=== PATIENT | female | born 1990 | race American Indian/Alaskan Native ===

== ENCOUNTER 2020-04-19 09:47 | Outpatient (CLI) | payer MEDICAID ==
--- NOTE | 2020-04-19 11:38 | Ultrasound Report ---
ULTRASOUND BREAST LEFT LIMITED, 04/19/2020 CLINICAL INFORMATION / INDICATION: PALP AREA. Patient presents for evaluation of an area of palpable concern in the left breast. TECHNIQUE: Targeted ultrasound evaluation was performed of the area of interest. COMPARISON: None. FINDINGS: Targeted ultrasound of the area of palpable concern in the left breast 8:00 position located 12 cm fr om the nipple as well as the 8:30 position located 12 cm from the nipple reveals 2 adjacent benign in tradermal cystic lesions, the larger measuring up to 10 mm. These are most compatible with benign judith aceous cysts. No suspicious sonographic abnormality identified. IMPRESSION: 1. Two adjacent benign cystic intradermal lesions are seen at the site of palpable concern in the lef t breast, most compatible with sebaceous cysts. No suspicious sonographic abnormality identified. Follow up recommendation: Unless otherwise clinically indicated, recommend patient return to routine screening mammography at age 38. BI-RADS Category 2: Benign. A normal or "negative" report should not preclude biopsy or follow-up of a clinically suspicious find ing. Signer Name: Lorna Calero MD Signed: 04/19/2020 11:33 AM Workstation Name: [email or web address]
== END 2020-04-19 09:48 | disposition home or self-care (01) ==
LOC: US 09:47
PROVIDERS: ATTEND Advanced Practice Midwife
DX: N60.02 Solitary cyst of left breast (principal); N64.9 Disorder of breast, unspecified

== ENCOUNTER 2020-10-05 04:57 | Inpatient (IN) | payer MEDICAID ==
[2020-10-05] MEDS ORDERED: SODIUM CHLORIDE 0.9% 1000 ML 1,000 ML ONE (05:31)
[2020-10-05] MEDS ORDERED: ACETAMINOPHEN 500 MG TAB PO ONE (05:59)
[2020-10-05] MEDS ORDERED: SODIUM CHLORIDE 0.9% 1000 ML 1,000 ML IV ONE (06:00)
--- NOTE | 2020-10-05 06:23 | Ultrasound Report ---
ULTRASOUND OBSTETRIC LIMITED INDICATION / CLINICAL INFORMATION: r/o labor. Clinical Gestational Age ([place]): 22.1 weeks.days COMPARISON: None available. FINDINGS: HEART RATE (beats per minute): 152 AMNIOTIC FLUID INDEX (cm) = not measured (normal = 7-24 cm) PRESENTATION: Cephalic. ADDITIONAL FINDINGS: Cervical length 3.4 cm IMPRESSION: 1. No significant abnormality. Signer Name: Antoine Rosario MD Signed: 10/05/2020 6:19 AM Workstation Name: [email or web address]
[2020-10-05] MEDS ORDERED: ACETAMINOPHEN 325 MG TAB PO PRN ×2 (06:25→11:25)
--- NOTE | 2020-10-05 06:39 | History and Physical Report ---
History of Present Illness Date of examination: 10/05/20 Date of admission: 10/05/2020 Chief complaint: Pt presents to triage via EMS from [facility]. C/O SOB, chills, body aches, fever, n/v, CLARK, loss of taste, and increased nasal congestion since yesterday. History of present illness: Report received from Dr. Simon @[facility] in [place], [place]: pt with +COVID test needing obstetric evaluation to R/O PTL. Per Dr. Simon, pt stable and not in active labor at time of transfer. Pt with H/O delivery x2. Denies receiving COVID vaccination. EDC: 01/18/2021 4 Para 2 Term 2 0 Living 2 1 SAB 1 EAB 0 Ectopic 0 Multiples 0 #1 2008 8wks SAB no D&C #2 12/20/2010, 41wks, Csection, 13hrs of labor, epidural, [facility] location, female [id number], failed IOL/NRFHT's #3 11/26/2012, 39wks, Csection, no labor, spinal, [facility] location, male 6lbs 9oz, scheduled repeat delivery Denies significant medical history Surgical history: C/S x2 Denies significant family and genetic history Current smoker Current Medications: PNV, Bonjesta, Promethazine NKA Past History Past Medical History: no pertinent history Past Surgical History: section Family/Genetic History: none Social history: smoking - Obstetrical History Expected Date of Delivery: 01/18/21 Actual Gestation: 25 Week(s) 0 Day(s) : 4 Para: 2 Hx # Term Pregnancies: 2 Number of Pregnancies: 0 Spontaneous Abortions: 1 Induced : 0 Number of Living Children: 2 Medications and Allergies Allergies Allergy/AdvReac Type Severity Reaction Status Date / Time No Known Allergies Allergy Verified 10/05/20 05:34 Active Meds: Active Medications Acetaminophen (Acetaminophen 325 Mg Tab) 650 mg PO Q4H PRN PRN Reason: Pain MILD(1-3)/Fever >100.5/CLARK Sodium Chloride (Nacl 0.9% 1000 Ml) 1,000 mls @ 999 mls/hr IV BOLUS ONE Stop: 10/05/20 07:00 Review of Systems Constitutional: fever, chills, fatigue, weakness, poor appetite Ears, nose, mouth and throat: nasal congestion Cardiovascular: shortness of breath Respiratory: cough, shortness of breath, congestion Gastrointestinal: abdominal pain, nausea, vomiting, loss of appetite Genitourinary: no vaginal bleeding, no leakage of fluid, no contractions Neurological: changes in smell/taste - Vital Signs Vital signs: Vital Signs Pulse Pulse Ox 86 98 10/05/20 05:05 10/05/20 05:05 Temp Pulse Resp BP Pulse Ox 99.6 F 76 97 10/05/20 05:28 10/05/20 06:35 10/05/20 06:35 - Physical Exam Breasts: Positive: deferred Cardiovascular: Regular rate Lungs: Positive: Other (shallow labored breathing) Abdomen: Positive: normal appearance, soft Genitourinary (Female): Positive: normal external genitalia, normal perenium Vulva: both: normal Vagina: Positive: normal moisture. Negative: discharge Uterus: Positive: normal size, normal contour Anus/Rectum: Positive: normal perianal skin Extremities: Positive: normal - Obstetrical FHR: auscultation normal, category 1 FHR comments: monitors readjusted by RN at bedside Uterine Contraction Monitor Mode: External Cervical Dilatation: 0 Cervical Effacement Percentage: 0 station: -4 Uterine Contraction Pattern: Absent Uterine Tone Measurement Phase: Resting Results All other labs normal. O positive HIV nonreactive RPR nonreactive Rubella Immune HBsAG negative Hepatitis C negative H/H 13.8/41.9 Platelets 227 [id number]/UL Chlamydia negative GC negative Trichomoniasis negative Pap smear normal Sickle cell screen negative AFP negative Urine culture MUG Ultrasound: report reviewed ([facility] report on 09/29/20 with SUA, posterior placenta, GIGI normal, breech presentation, normal echocardiogram) Assessment and Plan Dr. Ross present on unit and aware. POC reviewed with pt. Plan to admit pt for close observation. - Patient Problems (1) 25 weeks gestation of Current Visit: Yes Status: Acute (2) Supervision of high risk in second trimester Current Visit: Yes Status: Acute (3) COVID-19 affecting in second trimester Current Visit: Yes Status: Acute Plan to address problem: NST qshift Tylenol 1000mg PRN fever Continuous SpO2 Normal Saline IVF @125mL/hr CBC and CMP ordered Blood cultures x2 ordered Urine culture ordered Monitor SSx closely and notify provider with any changes Infectious Disease consultation requested [facility] consult needed (4) Single umbilical artery Current Visit: Yes Status: Acute Plan to address problem: Growth scans [id number] recommended per [facility] report on 09/29/20 (5) Maternal care for scar from previous delivery Current Visit: Yes Status: Acute
--- NOTE | 2020-10-05 06:52 | XRay Report ---
CHEST 1 VIEW 10/05/2020 5:44 AM INDICATION / CLINICAL INFORMATION: covid positive. COMPARISON: None available. FINDINGS: SUPPORT DEVICES: None. HEART / MEDIASTINUM: No significant abnormality. LUNGS / PLEURA: No significant pulmonary or pleural abnormality. No pneumothorax. ADDITIONAL FINDINGS: No significant additional findings. IMPRESSION: 1. No acute findings. Signer Name: Antoine Rosario MD Signed: 10/05/2020 6:48 AM Workstation Name: [id number]
[2020-10-05 08:04] LABS: Basophils % (Auto) 0.2 % (0.0-1.8); Eosinophils % (Auto) 0.1 % (0.0-4.3); Hematocrit 32.3 % (30.3-42.9); Hemoglobin 11.4 gm/dl (10.1-14.3); Lymphocytes # (Auto) 0.4 K/mm3 (1.2-5.4); Lymphocytes % (Auto) 6.3 % (13.4-35.0); Mean Corpuscular HGB Conc 35 % (30-34); Mean Corpuscular Volume 92 fl (79-97); Monocytes # (Auto) 0.8 K/mm3 (0.0-0.8); Monocytes % (Auto) 13.4 % (0.0-7.3); Platelet Count 163 K/mm3 (140-440); Red Blood Count 3.49 M/mm3 (3.65-5.03); Red Cell Distribution Width 13.4 % (13.2-15.2)
[2020-10-05 08:28] LABS: Alanine Aminotransferase 15 units/L (7-56); Albumin 3.2 g/dL (3.9-5); Blood Urea Nitrogen 4 mg/dL (7-17); Calcium 8.8 mg/dL (8.4-10.2); Hemolysis Index 0
[2020-10-05 08:51] LABS: BUN/Creatinine Ratio 8
--- NOTE | 2020-10-05 13:09 | Consultation ---
History of Present Illness - Reason for Consult Consult date: 10/05/20 COVID-19, Requesting physician: SKYLER GARCIA - History of Present Illness The patient is a 30-year-old female, about 25 weeks admitted with COVID-19. Patient with low-grade fever of 99.6 F. Chest x-ray did not reveal any obvious pneumonia. ID consulted. Labs reviewed, WBC 5.7, creatinine 0.5, AST 22, ALT 15. Patient reports having headaches for about a week, now also with cough and subjective fever. He works as a hairdresser. Got tested for COVID-19 yesterday was positive. There was also some concern for possible labor and hence she was transferred here. Per discussion with RN, patient remains on room air even with ambulation, her saturations remained 98%. Review of Systems: General: no fevers documented here, no chills or rigors HEENT: no new visual disturbance Respiratory: mild cough, no sputum, hemoptysis or shortness of breath Cardiovascular: No chest pain, syncope Gastrointestinal: No nausea, vomiting or diarrhea Genitourinary: No dysuria or hematuria Musculoskeletal: No new or worsening neck pain or back pain Neurologic: mild headaches, no seizures Hematologic: No easy bruising or bleeding Endocrine: No night sweats or acute weight loss Skin: negative for rash, jaundice Psychiatric: No suicidal or homicidal ideation Past History Social history: smoking Medications and Allergies Allergies Allergy/AdvReac Type Severity Reaction Status Date / Time No Known Allergies Allergy Verified 10/05/20 05:34 Active Meds: Active Medications Acetaminophen (Acetaminophen 500 Mg Tab) 1,000 mg PO Q6H PRN PRN Reason: Pain,MILD(1-3)/FEVER>100.5/CLARK Physical Examination - Physical Exam Narrative exam: Physical Exam: Constitutional: Alert, cooperative. No acute distress Head, Ears, Nose: Normocephalic, atraumatic. External ears, nose normal Eyes: Conjunctivae/corneas clear. No icterus. No ptosis. Neck: Supple, no meningeal signs Cardiovascular: S1, S2 + Respiratory: Good air entry, clear to auscultation bilaterally GI: Soft, non-tender; bowel sounds normal. No peritoneal signs Musculoskeletal: No pedal edema, no cyanosis. Skin: No rash or abscess Hem/Lymphatic: No palpable cervical or supraclavicular nodes. No lymphangitis Psych: Mood ok. Affect normal Neurological: Awake, alert, oriented. No gross abnormality - Constitutional Vitals: Vital Signs Temp Pulse Resp BP Pulse Ox 99.6 F 90 108/51 97 10/05/20 05:28 10/05/20 13:05 10/05/20 08:47 10/05/20 13:05 Temperature -Last 24 Hours Temperature 99.6 F Results - Labs CBC & Chem 7: 10/05/20 07:27 10/05/20 07:27 Labs: Abnormal lab results 10/05/20 10/05/20 Range/Units 07:27 07:27 RBC 3.49 L (3.65-5.03) M/mm3 MCH 33 H (28-32) pg MCHC 35 H (30-34) % Lymph % (Auto) 6.3 L (13.4-35.0) % Pierce % (Auto) 13.4 H (0.0-7.3) % Lymph # (Auto) 0.4 L (1.2-5.4) K/mm3 Seg Neutrophils % 80.0 H (40.0-70.0) % Sodium 134 L (137-145) mmol/L Potassium 3.5 L (3.6-5.0) mmol/L Carbon Dioxide 21 L (22-30) mmol/L BUN 4 L (7-17) mg/dL Creatinine 0.5 L (0.6-1.2) mg/dL Total Protein 5.6 L (6.3-8.2) g/dL Albumin 3.2 L (3.9-5) g/dL - Imaging and Cardiology Chest x-ray: report reviewed, image reviewed (no pneumonia) Assessment and Plan Cultures: SARS CoV2 PCR: Positive as outpatient (test result in physical chart) A/P: 30-year-old female with: #COVID-19 infection: unvaccinated. CXR without pneumonia. Not hypoxic. # status: 25 weeks, OB following Recs: -labs ordered: CRP, ferritin, LDH -Not hypoxic, no indication for remdesivir or steroids -No local availability of monoclonal antibody which is something she could qualify for -Since this is mild COVID-19, no specific need for anticoagulation post discharge. D-dimer may be elevated due to -Get ambulatory saturations later today or tomorrow morning, if she remains on room air, can be discharged from ID standpoint Plan discussed with Dr. Liv Leo MD, FACP [facility] ([facility] O: [phone] F: [phone]
[2020-10-05 15:16] LABS: C-Reactive Protein 2.6 mg/dL (0.00-1.30)
[2020-10-05] MEDS: ACETAMINOPHEN 500 MG TAB PO PRN ×2 (17:00→23:46)
--- NOTE | 2020-10-05 18:09 | Consultation ---
History of Present Illness Consult date: 10/05/20 Past History Past Medical History: no pertinent history Past Surgical History: section Family/Genetic History: none - Obstetrical History : 4 Medications and Allergies Allergies Allergy/AdvReac Type Severity Reaction Status Date / Time No Known Allergies Allergy Verified 10/05/20 05:34 Active Meds: Active Medications Acetaminophen (Acetaminophen 500 Mg Tab) 1,000 mg PO Q6H PRN PRN Reason: Pain,MILD(1-3)/FEVER>100.5/CLARK - Vital Signs Vital signs: Vital Signs Pulse Pulse Ox 86 98 10/05/20 05:05 10/05/20 05:05 Temp Pulse Resp BP Pulse Ox 99.1 F 89 108/51 97 10/05/20 11:55 10/05/20 18:04 10/05/20 08:47 10/05/20 18:04 Results Result Diagrams: 10/05/20 07:27 10/05/20 07:27 Abnormal lab results 10/05/20 10/05/20 10/05/20 Range/Units 07:27 07:27 14:35 RBC 3.49 L (3.65-5.03) M/mm3 MCH 33 H (28-32) pg MCHC 35 H (30-34) % Lymph % (Auto) 6.3 L (13.4-35.0) % Bay % (Auto) 13.4 H (0.0-7.3) % Lymph # (Auto) 0.4 L (1.2-5.4) K/mm3 Seg Neutrophils % 80.0 H (40.0-70.0) % Sodium 134 L (137-145) mmol/L Potassium 3.5 L (3.6-5.0) mmol/L Carbon Dioxide 21 L (22-30) mmol/L BUN 4 L (7-17) mg/dL Creatinine 0.5 L (0.6-1.2) mg/dL C-Reactive Protein 2.60 H (0.00-1.30) mg/dL Total Protein 5.6 L (6.3-8.2) g/dL Albumin 3.2 L (3.9-5) g/dL All other labs normal. Assessment and Plan Pt seen Full consult to follow
--- NOTE | 2020-10-06 08:03 | Progress Note ---
Assessment and Plan A: 30 y.o. @ 25 + wks, COVID +. P: ID and [facility] recommendations to discharge home. Anticipate discharge home later on this AM after NST. Subjective - Subjective Date of service: 10/06/20 (Pt feeling better.) Principal diagnosis: IUP @ 25 + wks, COVID + Objective - Vital Signs Vital Signs: Vital Signs - 12hr 10/05/20 10/05/20 10/05/20 20:03 20:08 20:13 Temperature 98.7 F Pulse Rate 81 84 86 Respiratory 18 Rate Blood Pressure Blood Pressure [Right] O2 Sat by Pulse 97 96 97 Oximetry 10/05/20 10/05/20 10/05/20 20:18 20:23 20:28 Temperature Pulse Rate 88 88 89 Respiratory Rate Blood Pressure Blood Pressure [Right] O2 Sat by Pulse 97 97 97 Oximetry 10/05/20 10/05/20 10/05/20 20:33 20:35 20:39 Temperature Pulse Rate 90 90 84 Respiratory Rate Blood Pressure Blood Pressure [Right] O2 Sat by Pulse 97 84 100 Oximetry 10/05/20 10/05/20 10/05/20 20:44 20:49 20:54 Temperature Pulse Rate 84 85 80 Respiratory Rate Blood Pressure Blood Pressure [Right] O2 Sat by Pulse 97 97 98 Oximetry 10/05/20 10/05/20 10/05/20 20:59 21:04 21:09 Temperature Pulse Rate 82 83 78 Respiratory Rate Blood Pressure Blood Pressure [Right] O2 Sat by Pulse 98 98 98 Oximetry 10/05/20 10/05/20 10/05/20 21:14 21:19 21:24 Temperature Pulse Rate 82 84 93 H Respiratory Rate Blood Pressure Blood Pressure [Right] O2 Sat by Pulse 97 96 98 Oximetry 10/05/20 10/05/20 10/05/20 21:29 21:34 21:39 Temperature Pulse Rate 84 91 H 83 Respiratory Rate Blood Pressure Blood Pressure [Right] O2 Sat by Pulse 98 98 98 Oximetry 10/05/20 10/05/20 10/05/20 21:44 21:49 21:54 Temperature Pulse Rate 82 83 87 Respiratory Rate Blood Pressure Blood Pressure [Right] O2 Sat by Pulse 99 99 99 Oximetry 10/05/20 10/05/20 10/05/20 21:59 22:04 22:09 Temperature Pulse Rate 86 90 85 Respiratory Rate Blood Pressure Blood Pressure [Right] O2 Sat by Pulse 98 98 99 Oximetry 10/05/20 10/05/20 10/05/20 22:15 22:20 22:23 Temperature Pulse Rate 81 84 89 Respiratory Rate Blood Pressure Blood Pressure [Right] O2 Sat by Pulse 90 99 88 Oximetry 10/05/20 10/05/20 10/05/20 22:25 22:30 22:35 Temperature Pulse Rate 81 86 87 Respiratory Rate Blood Pressure Blood Pressure [Right] O2 Sat by Pulse 99 98 99 Oximetry 10/05/20 10/05/20 10/05/20 22:40 22:45 22:47 Temperature Pulse Rate 90 87 74 Respiratory Rate Blood Pressure Blood Pressure [Right] O2 Sat by Pulse 98 99 84 Oximetry 10/05/20 10/05/20 10/05/20 22:50 22:55 23:00 Temperature Pulse Rate 85 85 82 Respiratory Rate Blood Pressure Blood Pressure [Right] O2 Sat by Pulse 98 99 98 Oximetry 10/05/20 10/05/20 10/05/20 23:05 23:10 23:15 Temperature Pulse Rate 84 86 87 Respiratory Rate Blood Pressure Blood Pressure [Right] O2 Sat by Pulse 98 98 96 Oximetry 10/05/20 10/05/20 10/05/20 23:20 23:23 23:25 Temperature Pulse Rate 87 98 H 86 Respiratory Rate Blood Pressure Blood Pressure [Right] O2 Sat by Pulse 96 92 99 Oximetry 10/05/20 10/05/20 10/05/20 23:30 23:35 23:40 Temperature Pulse Rate 83 84 82 Respiratory Rate Blood Pressure Blood Pressure [Right] O2 Sat by Pulse 97 97 98 Oximetry 10/05/20 10/05/20 10/05/20 23:45 23:46 23:48 Temperature Pulse Rate 88 86 Respiratory 18 Rate Blood Pressure 119/66 Blood Pressure [Right] O2 Sat by Pulse 94 Oximetry 10/05/20 10/05/20 10/05/20 23:49 23:50 23:55 Temperature 99.6 F Pulse Rate 89 92 H 84 Respiratory 18 Rate Blood Pressure Blood Pressure 119/66 [Right] O2 Sat by Pulse 99 100 98 Oximetry 10/06/20 10/06/20 10/06/20 00:00 00:05 00:10 Temperature Pulse Rate 84 83 84 Respiratory Rate Blood Pressure Blood Pressure [Right] O2 Sat by Pulse 98 98 98 Oximetry 10/06/20 10/06/20 10/06/20 00:15 00:20 00:25 Temperature Pulse Rate 85 86 88 Respiratory Rate Blood Pressure Blood Pressure [Right] O2 Sat by Pulse 97 97 97 Oximetry 10/06/20 10/06/20 10/06/20 00:30 00:35 00:40 Temperature Pulse Rate 86 86 86 Respiratory Rate Blood Pressure Blood Pressure [Right] O2 Sat by Pulse 98 94 96 Oximetry 10/06/20 10/06/20 10/06/20 00:45 00:46 00:50 Temperature Pulse Rate 89 89 Respiratory 18 Rate Blood Pressure Blood Pressure [Right] O2 Sat by Pulse 97 96 Oximetry 10/06/20 10/06/20 10/06/20 00:55 01:00 01:05 Temperature Pulse Rate 89 87 86 Respiratory Rate Blood Pressure Blood Pressure [Right] O2 Sat by Pulse 95 96 98 Oximetry 10/06/20 10/06/20 10/06/20 01:10 01:15 01:20 Temperature Pulse Rate 86 84 84 Respiratory Rate Blood Pressure Blood Pressure [Right] O2 Sat by Pulse 96 95 95 Oximetry 10/06/20 10/06/20 10/06/20 01:25 01:30 01:35 Temperature Pulse Rate 81 81 84 Respiratory Rate Blood Pressure Blood Pressure [Right] O2 Sat by Pulse 96 97 98 Oximetry 10/06/20 10/06/20 10/06/20 01:40 01:45 01:50 Temperature Pulse Rate 76 78 78 Respiratory Rate Blood Pressure Blood Pressure [Right] O2 Sat by Pulse 97 98 97 Oximetry 10/06/20 10/06/20 10/06/20 01:55 02:00 02:05 Temperature Pulse Rate 78 78 80 Respiratory Rate Blood Pressure Blood Pressure [Right] O2 Sat by Pulse 97 97 96 Oximetry 10/06/20 10/06/20 10/06/20 02:08 02:10 02:15 Temperature Pulse Rate 84 72 78 Respiratory Rate Blood Pressure Blood Pressure [Right] O2 Sat by Pulse 89 98 97 Oximetry 10/06/20 10/06/20 10/06/20 02:20 02:25 02:30 Temperature Pulse Rate 75 80 78 Respiratory Rate Blood Pressure Blood Pressure [Right] O2 Sat by Pulse 97 97 97 Oximetry 10/06/20 10/06/20 10/06/20 02:35 02:37 02:40 Temperature Pulse Rate 76 77 77 Respiratory Rate Blood Pressure Blood Pressure [Right] O2 Sat by Pulse 96 94 96 Oximetry 10/06/20 10/06/20 10/06/20 02:42 02:45 02:50 Temperature Pulse Rate 73 73 77 Respiratory Rate Blood Pressure Blood Pressure [Right] O2 Sat by Pulse 94 97 97 Oximetry 10/06/20 10/06/20 10/06/20 02:53 02:55 03:00 Temperature Pulse Rate 86 71 69 Respiratory Rate Blood Pressure Blood Pressure [Right] O2 Sat by Pulse 88 97 99 Oximetry 10/06/20 10/06/20 10/06/20 03:05 03:10 03:14 Temperature Pulse Rate 76 74 78 Respiratory Rate Blood Pressure Blood Pressure [Right] O2 Sat by Pulse 96 96 94 Oximetry 10/06/20 10/06/20 10/06/20 03:15 03:20 03:25 Temperature Pulse Rate 82 87 77 Respiratory Rate Blood Pressure Blood Pressure [Right] O2 Sat by Pulse 99 98 95 Oximetry 10/06/20 10/06/20 10/06/20 03:26 03:30 03:35 Temperature Pulse Rate 76 77 78 Respiratory Rate Blood Pressure Blood Pressure [Right] O2 Sat by Pulse 94 96 96 Oximetry 10/06/20 10/06/20 10/06/20 03:40 03:45 03:50 Temperature Pulse Rate 82 81 75 Respiratory Rate Blood Pressure Blood Pressure [Right] O2 Sat by Pulse 96 94 97 Oximetry 10/06/20 10/06/20 10/06/20 03:55 04:00 04:05 Temperature Pulse Rate 77 78 78 Respiratory Rate Blood Pressure Blood Pressure [Right] O2 Sat by Pulse 97 97 97 Oximetry 10/06/20 10/06/20 10/06/20 04:10 04:15 04:20 Temperature Pulse Rate 73 77 80 Respiratory Rate Blood Pressure Blood Pressure [Right] O2 Sat by Pulse 97 98 96 Oximetry 10/06/20 10/06/20 10/06/20 04:25 04:30 04:35 Temperature Pulse Rate 79 79 80 Respiratory Rate Blood Pressure Blood Pressure [Right] O2 Sat by Pulse 98 98 96 Oximetry 10/06/20 10/06/20 10/06/20 04:40 04:45 04:50 Temperature Pulse Rate 82 78 75 Respiratory Rate Blood Pressure Blood Pressure [Right] O2 Sat by Pulse 98 97 97 Oximetry 10/06/20 10/06/20 10/06/20 04:55 04:59 05:00 Temperature Pulse Rate 77 78 79 Respiratory Rate Blood Pressure Blood Pressure [Right] O2 Sat by Pulse 97 94 95 Oximetry 10/06/20 10/06/20 10/06/20 05:05 05:10 05:11 Temperature Pulse Rate 79 81 85 Respiratory Rate Blood Pressure Blood Pressure [Right] O2 Sat by Pulse 97 95 94 Oximetry 10/06/20 10/06/20 10/06/20 05:16 05:21 05:26 Temperature Pulse Rate 79 86 83 Respiratory Rate Blood Pressure Blood Pressure [Right] O2 Sat by Pulse 99 98 98 Oximetry 10/06/20 10/06/20 10/06/20 05:31 05:36 05:41 Temperature Pulse Rate 85 79 78 Respiratory Rate Blood Pressure Blood Pressure [Right] O2 Sat by Pulse 99 98 99 Oximetry 10/06/20 10/06/20 10/06/20 05:46 05:51 05:56 Temperature Pulse Rate 77 84 76 Respiratory Rate Blood Pressure Blood Pressure [Right] O2 Sat by Pulse 99 98 97 Oximetry 10/06/20 10/06/20 10/06/20 06:01 06:06 06:11 Temperature Pulse Rate 78 81 80 Respiratory Rate Blood Pressure Blood Pressure [Right] O2 Sat by Pulse 98 97 97 Oximetry 10/06/20 10/06/20 10/06/20 06:13 06:16 06:21 Temperature Pulse Rate 74 86 82 Respiratory Rate Blood Pressure Blood Pressure [Right] O2 Sat by Pulse 92 99 98 Oximetry 10/06/20 10/06/20 10/06/20 06:26 06:31 06:36 Temperature Pulse Rate 81 83 81 Respiratory Rate Blood Pressure Blood Pressure [Right] O2 Sat by Pulse 98 97 97 Oximetry 10/06/20 10/06/20 10/06/20 06:41 06:46 06:51 Temperature Pulse Rate 81 81 78 Respiratory Rate Blood Pressure Blood Pressure [Right] O2 Sat by Pulse 97 97 97 Oximetry 10/06/20 10/06/20 10/06/20 06:56 07:01 07:06 Temperature Pulse Rate 88 84 82 Respiratory Rate Blood Pressure Blood Pressure [Right] O2 Sat by Pulse 98 99 97 Oximetry 10/06/20 10/06/20 10/06/20 07:11 07:16 07:21 Temperature Pulse Rate 81 78 81 Respiratory Rate Blood Pressure Blood Pressure [Right] O2 Sat by Pulse 97 97 99 Oximetry 10/06/20 10/06/20 10/06/20 07:26 07:31 07:36 Temperature Pulse Rate 83 82 85 Respiratory Rate Blood Pressure Blood Pressure [Right] O2 Sat by Pulse 98 98 99 Oximetry 10/06/20 10/06/20 10/06/20 07:41 07:46 07:51 Temperature Pulse Rate 83 77 77 Respiratory Rate Blood Pressure Blood Pressure [Right] O2 Sat by Pulse 99 98 98 Oximetry 10/06/20 07:56 Temperature Pulse Rate 78 Respiratory Rate Blood Pressure Blood Pressure [Right] O2 Sat by Pulse 99 Oximetry - Exam Narrative Exam: Pt denies vaginal bleeding, LOF, ctxs, chest pain, and shortness of breath. Lung sounds clear to auscultation. Oxygen sats at this time are 98% on room air. Discussed with patient the recommendations for discharge home per AMFM and ID. Pt states that she is ready to go home and wants the IV taken out. We discussed she will have to quarantine for 2 weeks at home, wear a mask around others, wash hands thoroughly. We also discussed when she should call the office: vaginal bleeding like a period, contractions, decreased movement, or if she thinks her water broke. Pt verbalized understanding. Cardiovascular: Regular rate Lungs: Clear to auscultation, Other (Oxygen sats were 98% on room air) Abdomen: Present: normal appearance, soft FHR: other (Appropriate for gestational age. ) Uterine Contraction Monitor Mode: External Uterine Contraction Pattern: Absent Extremities: normal - Labs Labs: Abnormal Labs 10/05/20 10/05/20 10/05/20 07:27 07:27 14:35 RBC 3.49 L MCH 33 H MCHC 35 H Lymph % (Auto) 6.3 L Casey % (Auto) 13.4 H Lymph # (Auto) 0.4 L Seg Neutrophils % 80.0 H Sodium 134 L Potassium 3.5 L Carbon Dioxide 21 L BUN 4 L Creatinine 0.5 L C-Reactive Protein 2.60 H Total Protein 5.6 L Albumin 3.2 L Laboratory Results - last 24 hr 10/05/20 10/05/20 10/05/20 07:27 07:27 14:35 WBC 5.7 RBC 3.49 L Hgb 11.4 Hct 32.3 MCV 92 MCH 33 H MCHC 35 H RDW 13.4 Plt Count 163 Lymph % (Auto) 6.3 L Casey % (Auto) 13.4 H Eos % (Auto) 0.1 Baso % (Auto) 0.2 Lymph # (Auto) 0.4 L Casey # (Auto) 0.8 Eos # (Auto) 0.0 Baso # (Auto) 0.0 Seg Neutrophils % 80.0 H Seg Neutrophils # 4.5 Sodium 134 L Potassium 3.5 L Chloride 104.3 Carbon Dioxide 21 L Anion Gap 12 BUN 4 L Creatinine 0.5 L Estimated GFR > 60 BUN/Creatinine Ratio 8 Glucose 88 Calcium 8.8 Ferritin 32.2 Total Bilirubin 0.20 AST 22 ALT 15 Alkaline Phosphatase 55 Lactate Dehydrogenase C-Reactive Protein Total Protein 5.6 L Albumin 3.2 L Albumin/Globulin Ratio 1.3 10/05/20 14:35 WBC RBC Hgb Hct MCV MCH MCHC RDW Plt Count Lymph % (Auto) Casey % (Auto) Eos % (Auto) Baso % (Auto) Lymph # (Auto) Casey # (Auto) Eos # (Auto) Baso # (Auto) Seg Neutrophils % Seg Neutrophils # Sodium Potassium Chloride Carbon Dioxide Anion Gap BUN Creatinine Estimated GFR BUN/Creatinine Ratio Glucose Calcium Ferritin Total Bilirubin AST ALT Alkaline Phosphatase Lactate Dehydrogenase 97 C-Reactive Protein 2.60 H Total Protein Albumin Albumin/Globulin Ratio
[2020-10-06 09:57] VITALS: BP 116/60
--- NOTE | 2020-10-06 11:57 | Discharge Summary ---
Providers - Providers Date of Admission: 10/05/20 06:25 Date of discharge: 10/06/20 (Home undelivered) Attending physician: SARAH WHITTEN 10/05/20 07:39 Consult to Physician [CONS] Routine Comment: Consulting Provider: ALIYA DACOSTA Physician Instructions: guidance in terms of covid treatment /monitoring Reason For Exam: 25 wks; SUA; covid positive known to practice 10/05/20 11:23 Consult to Physician [CONS] Routine Comment: Consulting Provider: DIONNE ARECHIGA Physician Instructions: Reason For Exam: 25 weeks, symptomatic +COVID-19 Primary care physician: SARAH WHITTEN Hospitalization Reason for admission: observation Discharge diagnosis: other (Undelivered. ) Pertinent studies: Pt denies shortness of breath of breath. AMFM and ID were consulted d/t COVID positive and has been cleared by both services for discharge. Explained to patient that the office will call her and schedule a telemedicine visit. Discussed with the patient when to call the tea plantation worker provider: vaginal bleeding, LOF, ctxs, and/or shortness of breath. Hospital course: S: Pt doing well. Denies vaginal bleeding, LOF, ctxs, and shortness of breath. O: VSS. Pt has been afebrile for the last 24 hours. Appropriate monitor strip for 25 + wks, no contractions noted on monitor. A: 30 y.o. @ 25 + wks, COVID positive, now in good condition and can be discharged home. P: Discharge home with instructions. Office will call patient to schedule telemedicine visit. Condition at discharge: Good Disposition: 01 HOME / SELF CARE / HOMELESS Plan - Provider Discharge Summary Activity: routine, no sex for 6 weeks, no heavy lifting 4 weeks, no strenuous exercise Diet: routine Additional instructions: [] Smoking cessation referral if applicable(refer to patient education folder for contact #) [] Refer to [facility] Booklet Call your doctor immediately for: * Fever > 100.5 * Heavy vaginal bleeding ( >1 pad per hour) * Severe persistent headache * Shortness of breath * Reddened, hot, painful area to leg or breast * Drainage or odor from incision. * Keep incision clean and dry at all times and follow doctor's instructions regarding bathing/showering Our office will call you to schedule a telemedicine visit. Please call the office if you have vaginal bleeding, LOF, ctxs, worsening shortness of breath and await further instructions from the [employer] worker provider. If you have fever or chills, please call the tea plantation worker provider and await further instructions. If you have any questions or concerns after discharge, please do not hesitate to call the office at [phone]. - Follow up plan Follow up: SARAH WHITTEN MD [Primary Care Provider] - 7 Days Forms: [facility] Discharge Summary
--- NOTE | 2020-10-06 12:29 | Progress Note ---
Assessment and Plan Cultures: SARS CoV2 PCR: Positive as outpatient (test result in physical chart) A/P: 30-year-old female with: #COVID-19 infection: unvaccinated. CXR without pneumonia. Not hypoxic. # status: 25 weeks, OB following Recs: Low-grade temperatures, but all less than 100 F. Labs revealed CRP of 2.6, ferritin 32.2, not concerning for severe COVID-19. Remains on room air, saturating 98% OK for discharge from ID standpoint Yeimy Leo MD, FACP [facility] O: [phone] F: [phone] Subjective Date of service: 10/06/20 Principal diagnosis: IUP @ 25 + wks, COVID + Interval history: Low-grade temperatures, but all less than 100 F. Labs revealed CRP of 2.6, ferritin 32.2. Remains on room air, saturating 98% Objective - Exam Narrative Exam: Physical Exam (reviewed in chart to minimize risk of transmission) Constitutional: deferred Head, Ears, Nose: deferred Eyes: deferred Neck: deferred Oral: deferred Cardiovascular: deferred Respiratory: deferred GI: deferred Musculoskeletal: deferred Skin: deferred Hem/Lymphatic: deferred Psych: deferred Neurological: deferred - Constitutional Vitals: Vital Signs Temp Pulse Resp BP Pulse Ox 99.3 F 85 18 116/60 98 10/06/20 08:12 10/06/20 09:56 10/06/20 00:46 10/06/20 09:55 10/06/20 09:56 Temperature -Last 24 Hours Temperature 99.3 F Temperature 99.6 F Temperature 98.7 F Temperature 98.9 F Temperature 98.6 F - Labs CBC & Chem 7: 10/05/20 07:27 10/05/20 07:27 Labs: Abnormal lab results 10/05/20 Range/Units 14:35 C-Reactive Protein 2.60 H (0.00-1.30) mg/dL
== END 2020-10-06 12:22 | disposition home or self-care (01) | DRG 781 ==
LOC: TRG 04:57 → APU 05:02 → TRG 06:25 → APU 06:25 → LD 12:23
PROVIDERS: ADMIT Obstetrics & Gynecology; ATTEND Obstetrics & Gynecology
DX: O98.512 Other viral diseases complicating pregnancy, second trimester (principal); U07.1 COVID-19; Z3A.25 25 weeks gestation of pregnancy
CPT/HCPCS: 36415; 71045; 76815; 80053; 82728; 83615; 85025; 86140; 87040; G0378; J7030